=== PATIENT | female | born 1990 | race African-American/Black ===

== ENCOUNTER 2016-10-17 12:47 | Emergency (ER) | payer MEDICAID, OTHER ==
[~2016-10-17] VITALS: Ht 157.5 cm; Wt 51.0 kg
[2016-10-17] MEDS ORDERED: SODIUM CHLORIDE 0.9% 10ML VIAL ONE (13:31)
[2016-10-17] MEDS ORDERED: IOHEXOL-300 100 ML BOTTLE ONE (13:31)
[2016-10-17] MEDS ORDERED: SODIUM CHLORIDE 0.9% 1,000 ML IV ONE (14:05)
[2016-10-17] MEDS ORDERED: ONDANSETRON HCL 4MG/2ML VIAL IV STA (14:05)
[2016-10-17] MEDS ORDERED: FAMOTIDINE 20MG/2ML VIAL IV ONE (14:15)
[2016-10-17 14:25] LABS: BASOPHILS % 0.2 % (0.0-2.0); EOSINOPHILS % 0.1 % (0.0-5.0); HEMATOCRIT. 42.4 % (36.0-48.0); HEMOGLOBIN. 14.3 g/dL (12.0-16.0); LYMPHOCYTES % 7.5 % (20.0-50.0); MEAN CORPUSCULAR HEMOGLOBIN 30.5 pg (28.0-32.0); MEAN CORPUSCULAR VOLUME 90.5 fL (81.0-99.0); MEAN PLATELET VOLUME 10.5 fl (7.4-10.4); NEUTROPHILS % 87.2 % (40.0-76.0); PLATELET 147 x1000/uL (130-400); RED BLOOD CELL COUNT 4.68 mill/uL (4.2-5.4)
[2016-10-17 14:34] LABS: HCG SCREEN NEGATIVE
[2016-10-17 14:37] LABS: CARBON DIOXIDE 27 mEq/L (21-32); CHLORIDE 103 mEq/L (98-107)
[2016-10-17] MEDS ORDERED: KETOROLAC 30MG/ML VIAL IV ONE (15:15)
[2016-10-17 16:24] LABS: CLARITY URINE CLOUDY (CLEAR); COLOR URINE ORANGE (YELLOW); GLUCOSE URINE NEGATIVE (NEGATIVE); KETONES URINE 1+ (NEGATIVE); LEUKOCYTE ESTERASE URINE NEGATIVE (NEGATIVE); NITRITE URINE POSITIVE (NEGATIVE); OCCULT BLOOD URINE 3+ (NEGATIVE); PH URINE 8.5 (4.5-8.0); PROTEIN URINE NEGATIVE (NEGATIVE); SPECIFIC GRAVITY URINE 1.021 (1.005-1.030); UROBILINOGEN URINE 0.2 E.U./dL (0.2-1.0)
[2016-10-17 17:33] VITALS: BP 91/54
== END 2016-10-17 19:19 | disposition home or self-care (01) ==
LOC: ER 12:54
DX: N39.0 Urinary tract infection, site not specified (principal)
CPT/HCPCS: 36415; 74177; 76830; 76856; 80053; 81001; 84703; 85025; 96361; 96374; 96375; 99285; A4216; J1885; J2405; J3490; J7030; Q9967; Z7610

== ENCOUNTER 2017-02-01 15:51 | Emergency (ER) | payer OTHER, MEDICAID ==
[~2017-02-01] VITALS: Ht 149.9 cm; Wt 39.0 kg
[~2017-02-01 15:51] MED LIST: IOHEXOL-300 100 ML BOTTLE ONE; SODIUM CHLORIDE 0.9% 10ML VIAL ONE
[2017-02-01] MEDS ORDERED: SODIUM CHLORIDE 0.9% 1,000 ML IV ONE (18:04)
[2017-02-01] MEDS ORDERED: ONDANSETRON HCL 4MG/2ML VIAL IV STA (18:04)
[2017-02-01] MEDS ORDERED: MORPHINE SULFATE 4 MG/ML CPJ (NOT FOR IM USE) IV STA (18:04)
[2017-02-01 18:34] LABS: HEMATOCRIT. 45.7 % (36.0-48.0); HEMOGLOBIN. 15.6 g/dL (12.0-16.0); MEAN CORPUSCULAR HEMOGLOBIN 31.5 pg (28.0-32.0); MEAN CORPUSCULAR VOLUME 92.4 fL (81.0-99.0); MEAN PLATELET VOLUME 10.6 fl (7.4-10.4); PLATELET 162 x1000/uL (130-400); RED BLOOD CELL COUNT 4.94 mill/uL (4.2-5.4); RED CELL DISTRIBUTION WIDTH 13.2 % (11.6-14.6)
[2017-02-01 18:38] LABS: CHLORIDE 104 mEq/L (98-107)
[2017-02-01 18:42] LABS: CARBON DIOXIDE 26 mEq/L (21-32)
[2017-02-01 18:44] LABS: HCG SCREEN NEGATIVE
[2017-02-01 18:57] LABS: PROTHROMBIN TIME 10.7 sec (9.4-11.6)
[2017-02-01 18:59] LABS: PLATELET ESTIMATE NORMAL
[2017-02-01] MEDS ORDERED: MORPHINE SULFATE 4 MG/ML CPJ (NOT FOR IM USE) IV ONE (19:15)
[2017-02-01 20:37] LABS: CLARITY URINE TURBID (CLEAR); COLOR URINE ORANGE (YELLOW); GLUCOSE URINE NEGATIVE (NEGATIVE); KETONES URINE 1+ (NEGATIVE); LEUKOCYTE ESTERASE URINE 1+ (NEGATIVE); NITRITE URINE POSITIVE (NEGATIVE); OCCULT BLOOD URINE 3+ (NEGATIVE); PROTEIN URINE 2+ (NEGATIVE); SPECIFIC GRAVITY URINE 1.026 (1.005-1.030)
[2017-02-01] MEDS ORDERED: CEFTRIAXONE 1 G PREMIX 50 ML IV ONE (20:45)
[2017-02-01 20:48] LABS: UCG SCREEN NEGATIVE
[2017-02-01 20:54] VITALS: BP 121/81
[2017-02-01] MEDS ORDERED: DOCUSATE SODIUM 250MG CAPSULE PO ONE (21:00)
== END 2017-02-01 22:23 | disposition home or self-care (01) ==
LOC: ER 17:26
DX: R10.9 Unspecified abdominal pain (principal); K76.0 Fatty (change of) liver, not elsewhere classified; K76.89 Other specified diseases of liver; K59.00 Constipation, unspecified
CPT/HCPCS: 36415; 74022; 74177; 80053; 81001; 81025; 83690; 84703; 85025; 85610; 96361; 96365; 96375; 96376; 99285; A4216; J0696; J2270; J2405; J7030; Q9967; Z7610

== ENCOUNTER 2017-03-30 17:57 | Emergency (ER) | payer MEDICAID, OTHER ==
[~2017-03-30] VITALS: Ht 149.9 cm; Wt 37.0 kg
[2017-03-30] MEDS ORDERED: IBUPROFEN 600MG TABLET PO ONE (22:00)
[2017-03-30 22:04] LABS: CLARITY URINE CLOUDY (CLEAR); COLOR URINE DARK YELLOW (YELLOW); GLUCOSE URINE NEGATIVE (NEGATIVE); KETONES URINE 1+ (NEGATIVE); LEUKOCYTE ESTERASE URINE 1+ (NEGATIVE); NITRITE URINE NEGATIVE (NEGATIVE); OCCULT BLOOD URINE 3+ (NEGATIVE); PROTEIN URINE 1+ (NEGATIVE); SPECIFIC GRAVITY URINE 1.032 (1.005-1.030)
[2017-03-30 23:30] VITALS: BP 114/64
[2017-03-30] MEDS ORDERED: MAGNESIUM CITRATE 300ML SOLUTION PO ONE (23:45)
== END 2017-03-30 23:49 | disposition home or self-care (01) ==
LOC: ER 18:01
DX: N30.00 Acute cystitis without hematuria (principal); Z98.890 Other specified postprocedural states
CPT/HCPCS: 74000; 81001; 81025; 99285

== ENCOUNTER 2018-10-30 13:41 | Emergency (ER) | payer MEDICAID ==
[~2018-10-30] VITALS: Ht 167.6 cm; Wt 55.0 kg
[2018-10-30] MEDS ORDERED: ONDANSETRON HCL 4MG/2ML INJ IV STA (14:04)
[2018-10-30] MEDS ORDERED: SODIUM CHLORIDE 0.9% 1,000 ML IV ONE (14:04)
[2018-10-30] MEDS ORDERED: MAGNESIUM/ALUMINUM HYDROXIDE/SIMETHICONE 30ML UDC PO STA (14:04)
[2018-10-30] MEDS ORDERED: KETOROLAC 30MG/ML VIAL IV STA (14:04)
[2018-10-30] MEDS ORDERED: MAGNESIUM CITRATE 300ML SOLUTION PO ONE (14:45)
[2018-10-30] MEDS ORDERED: MINERAL OIL 30ML BOTTLE PO ONE (14:45)
[2018-10-30 14:57] LABS: CHLORIDE 107 mEq/L (98-107)
[2018-10-30 14:58] LABS: BASOPHILS % 0.2 % (0.0-2.0); EOSINOPHILS % 0.5 % (0.0-5.0); HEMATOCRIT. 42.9 % (36.0-48.0); HEMOGLOBIN. 14.5 g/dL (12.0-16.0); LYMPHOCYTES % 8.5 % (20.0-50.0); MEAN CORPUSCULAR HEMOGLOBIN 32.8 pg (28.0-32.0); MEAN CORPUSCULAR VOLUME 96.7 fL (81.0-99.0); MEAN PLATELET VOLUME 11.5 fl (7.4-10.4); NEUTROPHILS % 84.8 % (40.0-76.0); PLATELET 130 x1000/uL (130-400); RED BLOOD CELL COUNT 4.43 mill/uL (4.2-5.4); RED CELL DISTRIBUTION WIDTH 12.2 % (11.6-14.6)
[2018-10-30 15:02] LABS: ETHANOL BLOOD < 10 mg/dL
[2018-10-30 15:29] LABS: CLARITY URINE TURBID (CLEAR); COLOR URINE YELLOW (YELLOW); KETONES URINE NEGATIVE (NEGATIVE); LEUKOCYTE ESTERASE URINE 3+ (NEGATIVE); NITRITE URINE NEGATIVE (NEGATIVE); OCCULT BLOOD URINE TRACE (NEGATIVE); PROTEIN URINE NEGATIVE (NEGATIVE); SPECIFIC GRAVITY URINE 1.025 (1.005-1.030)
[2018-10-30 15:41] LABS: *AMPHETAMINES SCREEN URINE NEGATIVE (NEGATIVE); *BARBITURATES SCREEN URINE NEGATIVE (NEGATIVE); *BENZODIAZEPINES SCREEN URINE NEGATIVE (NEGATIVE); *COCAINE SCREEN URINE NEGATIVE (NEGATIVE); METHADONE URINE SCREEN NEGATIVE (NEGATIVE)
[2018-10-30 15:42] LABS: PHENCYCLIDINE URINE SCREEN NEGATIVE (NEGATIVE)
[2018-10-30 15:46] LABS: CANNABINOID URINE SCREEN PRESUMTIVE POSITIVE (NEGATIVE); OPIATES URINE SCREEN PRESUMTIVE POSITIVE (NEGATIVE)
[2018-10-30] MEDS ORDERED: METOCLOPRAMIDE HCL 10MG/2ML VIAL IV ONE (16:15)
[2018-10-30] MEDS ORDERED: LACTULOSE 20G/30ML UDC PO ONE (16:15)
[2018-10-30 17:46] VITALS: BP 105/64
== END 2018-10-30 17:48 | disposition home or self-care (01) ==
LOC: ER 13:59
DX: R10.33 Periumbilical pain (principal)
CPT/HCPCS: 36415; 74176; 80053; 80305; 80320; 81003; 81025; 83690; 85025; 87086; 96374; 96375; 99284; J1885; J2405; J2765; J7030; G0480

== ENCOUNTER 2018-11-01 17:53 | Emergency (ER) | payer OTHER, MEDICAID ==
[~2018-11-01] VITALS: Ht 162.6 cm; Wt 49.0 kg
[2018-11-01] MEDS ORDERED: ONDANSETRON HCL 4MG/2ML INJ IV STA (22:31)
[2018-11-01] MEDS ORDERED: SODIUM CHLORIDE 0.9% 1,000 ML IV ONE (22:31)
[2018-11-01] MEDS ORDERED: MORPHINE SULFATE 4 MG/ML CPJ (NOT FOR IM USE) IV STA (22:31)
[2018-11-01 23:02] LABS: HEMOGLOBIN. 14.4 g/dL (12.0-16.0); MEAN CORPUSCULAR HEMOGLOBIN 32.9 pg (28.0-32.0); MEAN CORPUSCULAR VOLUME 95.9 fL (81.0-99.0); PLATELET 163 x1000/uL (130-400); RED BLOOD CELL COUNT 4.38 mill/uL (4.2-5.4); RED CELL DISTRIBUTION WIDTH 11.9 % (11.6-14.6)
[2018-11-01 23:06] LABS: CHLORIDE 105 mEq/L (98-107)
[2018-11-01 23:12] LABS: HCG SCREEN NEGATIVE
[2018-11-01 23:16] LABS: PLATELET ESTIMATE NORMAL
[2018-11-02 00:15] LABS: CLARITY URINE CLOUDY (CLEAR); COLOR URINE YELLOW (YELLOW); KETONES URINE 3+ (NEGATIVE); LEUKOCYTE ESTERASE URINE 3+ (NEGATIVE); NITRITE URINE NEGATIVE (NEGATIVE); OCCULT BLOOD URINE 3+ (NEGATIVE); PROTEIN URINE NEGATIVE (NEGATIVE); SPECIFIC GRAVITY URINE 1.021 (1.005-1.030); UROBILINOGEN URINE 0.2 E.U./dL (0.2-1.0)
[2018-11-02] MEDS ORDERED: ONDANSETRON HCL 4MG/2ML INJ IV ONE (00:15)
[2018-11-02] MEDS ORDERED: MORPHINE SULFATE 4 MG/ML CPJ (NOT FOR IM USE) IV ONE (00:15)
[2018-11-02] MEDS ORDERED: CEFTRIAXONE 1 G PREMIX 50 ML IV ONE (01:00)
[2018-11-02] MEDS ORDERED: DIPHENHYDRAMINE 50MG/ML VIAL IV SCH (02:45)
[2018-11-02] MEDS ORDERED: DIPHENHYDRAMINE 50MG/ML VIAL IV ONE (02:45)
[2018-11-02] MEDS ORDERED: IOHEXOL-300 100 ML BOTTLE ONE (03:51)
[2018-11-02 04:11] VITALS: BP 113/72
== END 2018-11-02 04:15 | disposition home or self-care (01) ==
LOC: ER 17:53
DX: N12 Tubulo-interstitial nephritis, not specified as acute or chronic (principal); R10.31 Right lower quadrant pain; R11.2 Nausea with vomiting, unspecified
CPT/HCPCS: 36415; 74177; 80053; 81003; 81025; 83690; 84703; 85025; 87040; 87086; 96361; 96365; 96375; 96376; 99284; J0696; J1200; J2270; J2405; J7030; Q9967; Z7610

== ENCOUNTER 2018-11-03 17:51 | Emergency (ER) | payer OTHER, MEDICAID ==
[~2018-11-03] VITALS: Ht 142.2 cm; Wt 41.0 kg
[2018-11-03] MEDS ORDERED: SODIUM CHLORIDE 0.9% 1,000 ML IV ONE (22:51)
[2018-11-03] MEDS ORDERED: KETOROLAC 30MG/ML VIAL IV STA (22:51)
[2018-11-03 23:09] LABS: BASOPHILS % 0.4 % (0.0-2.0); EOSINOPHILS % 0.4 % (0.0-5.0); HEMOGLOBIN. 13.8 g/dL (12.0-16.0); LYMPHOCYTES % 12.1 % (20.0-50.0); MEAN CORPUSCULAR HEMOGLOBIN 33.7 pg (28.0-32.0); MEAN CORPUSCULAR VOLUME 92.5 fL (81.0-99.0); MEAN PLATELET VOLUME 9.8 fl (7.4-10.4); MONOCYTES % 6.3 % (2.0-8.0); NEUTROPHILS % 80.8 % (40.0-76.0); PLATELET 167 x1000/uL (130-400); RED BLOOD CELL COUNT 4.11 mill/uL (4.2-5.4)
[2018-11-03 23:11] LABS: CHLORIDE 104 mEq/L (98-107)
[2018-11-04 05:30] VITALS: BP 115/70
== END 2018-11-04 05:49 | disposition home or self-care (01) ==
LOC: ER 17:51
DX: R10.2 Pelvic and perineal pain (principal); D25.9 Leiomyoma of uterus, unspecified; F12.10 Cannabis abuse, uncomplicated; F17.210 Nicotine dependence, cigarettes, uncomplicated
CPT/HCPCS: 36415; 76830; 76856; 80053; 81025; 85025; 96374; 99284; J1885; J7030; Z7610

== ENCOUNTER 2018-12-04 07:33 | Emergency (ER) | payer OTHER, MEDICAID ==
[~2018-12-04] VITALS: Ht 144.8 cm; Wt 34.0 kg
[2018-12-04] MEDS ORDERED: TRAM100C3 PO (07:41)
[2018-12-04] MEDS ORDERED: MORPHINE SULFATE 4 MG/ML CPJ (NOT FOR IM USE) IV STA ×3 (07:48→12:22)
[2018-12-04] MEDS ORDERED: ONDANSETRON HCL 4MG/2ML INJ IV STA (07:48)
[2018-12-04] MEDS ORDERED: SODIUM CHLORIDE 0.9% 1,000 ML IV ONE ×2 (07:48→11:11)
[2018-12-04 08:29] LABS: HEMATOCRIT. 37.3 % (36.0-48.0); HEMOGLOBIN. 12.6 g/dL (12.0-16.0); MEAN CORPUSCULAR HEMOGLOBIN 30.5 pg (28.0-32.0); MEAN CORPUSCULAR VOLUME 89.9 fL (81.0-99.0); MEAN PLATELET VOLUME 10.4 fl (7.4-10.4); PLATELET 312 x1000/uL (130-400); RED BLOOD CELL COUNT 4.15 mill/uL (4.2-5.4); RED CELL DISTRIBUTION WIDTH 12.2 % (11.6-14.6)
[2018-12-04 08:37] LABS: CHLORIDE 99 mEq/L (98-107)
[2018-12-04 08:46] LABS: HCG SCREEN NEGATIVE
[2018-12-04 09:28] LABS: PLATELET ESTIMATE NORMAL
[2018-12-04 09:42] LABS: CLARITY URINE CLOUDY (CLEAR); COLOR URINE ORANGE (YELLOW); KETONES URINE 4+ (NEGATIVE); LEUKOCYTE ESTERASE URINE 2+ (NEGATIVE); NITRITE URINE NEGATIVE (NEGATIVE); OCCULT BLOOD URINE 2+ (NEGATIVE); PROTEIN URINE 1+ (NEGATIVE); SPECIFIC GRAVITY URINE 1.029 (1.005-1.030)
[2018-12-04] MEDS ORDERED: METRONIDAZOLE 500 MG PREMIX 100 ML IV ONE (11:15)
[2018-12-04] MEDS ORDERED: CEFTRIAXONE 1 G PREMIX 50 ML IV ONE (11:30)
[2018-12-04 14:33] VITALS: BP 118/73
== END 2018-12-04 14:33 | disposition short-term general hospital (02) ==
LOC: ER 07:33 → CANBEDREQ 12:59 → ER 14:33
DX: L02.211 Cutaneous abscess of abdominal wall (principal); N83.209 Unspecified ovarian cyst, unspecified side; F12.10 Cannabis abuse, uncomplicated
CPT/HCPCS: 36415; 74177; 76830; 76856; 80053; 81003; 83605; 83690; 84703; 85025; 96361; 96365; 96366; 96368; 96375; 96376; 99285; J0696; J2270; J2405; J3490; J7030; Z7610

== ENCOUNTER 2023-05-29 16:58 | Emergency (ER) | payer MEDICAID ==
[~2023-05-29] VITALS: Ht 167.6 cm; Wt 50.0 kg
[~2023-05-29 16:58] MED LIST changes: -IOHEXOL-300 100 ML BOTTLE ONE; -SODIUM CHLORIDE 0.9% 10ML VIAL ONE; +TRAM100C3 PO
[2023-05-29 17:02] VITALS: O2SAT 98
[2023-05-29] MEDS ORDERED: ONDANSETRON HCL 4MG/2ML INJ IV STA (17:56)
[2023-05-29] MEDS ORDERED: MORPHINE SULFATE 4 MG/ML CPJ (NOT FOR IM USE) IV STA (17:56)
[2023-05-29 18:41] LABS: BASOPHILS % 0.2 % (0.0-2.0); EOSINOPHILS % 0.2 % (0.0-5.0); HEMATOCRIT. 38.3 % (36.0-48.0); HEMOGLOBIN. 12.5 g/dL (12.0-16.0); LYMPHOCYTES % 10.5 % (20.0-50.0); MEAN CORPUSCULAR HEMOGLOBIN 29.9 pg (28.0-32.0); MEAN CORPUSCULAR HGB CONC 32.7 g/dL (31.0-37.0); MEAN CORPUSCULAR VOLUME 91.4 fL (81.0-99.0); MEAN PLATELET VOLUME 11.2 fl (7.4-10.4); NEUTROPHILS % 83.1 % (40.0-76.0); PLATELET 142 x1000/uL (130-400); RED BLOOD CELL COUNT 4.19 mill/uL (4.2-5.4); RED CELL DISTRIBUTION WIDTH 15.2 % (11.6-14.6); WHITE BLOOD COUNT 9.8 x1000/uL (4.5-11.0)
[2023-05-29 18:44] LABS: HCG SCREEN NEGATIVE
[2023-05-29 18:49] LABS: ALANINE AMINOTRANSFERASE 8 IU/L (10-49); ALBUMIN 4.1 g/dL (3.2-4.8); ASPARTATE AMINOTRANSFERASE 16 IU/L (<34); BILIRUBIN TOTAL 0.6 mg/dL (0.1-1.0); CARBON DIOXIDE 24 mEq/L (21-32); CHLORIDE 104 mEq/L (98-107); CREATININE 0.7 mg/dL (0.6-1.0); GLUCOSE 83 mg/dL (70-105); POTASSIUM 3.6 mEq/L (3.5-5.1); PROTEIN TOTAL 7.7 g/dL (6.0-8.3); SODIUM 138 mEq/L (136-145); UREA NITROGEN BLOOD 22 mg/dL (9-23)
[2023-05-29] MEDS ORDERED: MORPHINE SULFATE 4 MG/ML CPJ (NOT FOR IM USE) IV ONE (21:00)
[2023-05-29] MEDS ORDERED: ONDA4TAB11 PO (22:33)
[2023-05-29] MEDS ORDERED: HYDR-4001 MT (22:33)
[2023-05-29 23:08] VITALS: BP 112/82; PULSE 78; RESP 16; TEMP 97.8
== END 2023-05-29 23:47 | disposition home or self-care (01) ==
LOC: ER 16:58 → CANBEDREQ 05-30 04:17
DX: R10.2 Pelvic and perineal pain (principal); F12.10 Cannabis abuse, uncomplicated; Z98.890 Other specified postprocedural states
CPT/HCPCS: 80053; 84703; 83690; 85025; 36415; 74177; 76830; 76856; 96374; 96375; 99285; J2405; J2270; Z7610